=== PATIENT | female | born 1975 | race Caucasian/White ===

== ENCOUNTER 2017-10-19 20:05 | Emergency (ER) | payer OTHER ==
[~2017-10-19] VITALS: Ht 154.9 cm; Wt 49.4 kg
[~2017-10-19 20:05] MED LIST: ALBU.5I INH; DUONI NEB; GUAISOL PO; TUSSSUS PO
[2017-10-19 20:30] VITALS: BP 130/76; PULSE 70; RESP 16; TEMP 98.5; O2SAT 98
[2017-10-19] MEDS ORDERED: methylPREDNISolone SOD SUCC 125 MG/2 ML VIAL IV PUSH ONE (21:00)
[2017-10-19] MEDS ORDERED: SODIUM CHLORIDE 0.9% FLUSH 10 ML FLUSH IVF PRN (21:00)
[2017-10-19] MEDS: RESP: ALBUTEROL 2.5 MG/IPRATROPIUM 0.5 MG NEB (SCH) INH ×2 (21:03→21:04)
--- NOTE | 2017-10-19 21:32 | PD ---
HPI . Persistent cough Chief Complaint: Respiratory Symptoms Time Seen by Provider: 20:48 Travel History International Travel<30 days: No Contact w/Intl Traveler<30days: No Traveled to known affect area: No History of Present Illness HPI This patient presents with chief complaint of persistent cough. Onset was a week ago. She states that she did have purulent sputum production but that the sputum has resolved. She has a history of asthma. She saw her PMD yesterday who gave her a steroid injection. She has been using her albuterol MDI. She states that her doctor told her that she needed to be seen in the emergency department if she was not better in 24 hours. The symptoms have persisted so she comes to us tonight. She is unaware of any modifying factors. Her symptoms are moderate. PFSH Past Medical History Asthma: Yes Diabetes: No Diminished Hearing: No : 3 Para: 2 : 1 Past Surgical History Other Surgery: Yes (NOSE BROKEN FOUR TIMES SURGERY X2) Social History Alcohol Use: No Tobacco Use: No Substance Use: No Allergies-Medications (Allergen,Severity, Reaction): Coded Allergies: cortisone (Unverified Allergy, Intermediate, RASH, 10/19/17) red dye (Unverified Allergy, Intermediate, RASH, 10/19/17) diatrizoate meglumine (Unverified Adverse Reaction, Intermediate, HIVES, ) gadobenic acid (Unverified Adverse Reaction, Intermediate, HIVES, 10/19/17) gadodiamide (Unverified Adverse Reaction, Intermediate, HIVES, 10/19/17) gadoteridol (Unverified Adverse Reaction, Intermediate, HIVES, 10/19/17) iodixanol (Unverified Adverse Reaction, Intermediate, HIVES, 10/19/17) iohexol (Unverified Adverse Reaction, Intermediate, HIVES, 10/19/17) Reported Meds & Prescriptions Reported Meds & Active Scripts Active Robitussin Dac (Codeine/Guaifenesin/Pseudoeph) Liqd 10 Ml PO Q6H Resp: Albuterol/Ipratropium 2.5 Mg/0.5 Mg (Albuterol/Ipratropium) 1 Amp Nebu 1 Amp NEB Q6H Reported Tussionex (Chlorphenir/Hydrocodone Polistirex) Liqcr 5 Ml PO BID PRN Proventil Conc Ud 0.5% (2.5 Mg/0.5 Ml) (Albuterol Sulfate) 2.5 Mg/0.5 Ml Inha 2.5 Mg INH Q6H PRN Review of Systems Except as stated in HPI: all other systems reviewed are Neg General / Constitutional: No: Fever, Chills Respiratory: Positive: Cough, Shortness of Breath Physical Exam Narrative GENERAL: Awake and alert and in no acute distress. Very persistent cough. SKIN: Warm and dry. HEAD: Normocephalic/atraumatic. EYES: Pupils are equal. Extraocular movements are intact. NECK: Normal range of motion. CARDIOVASCULAR: Regular rate and rhythm. Heart sounds are normal. RESPIRATORY: Breath sounds are full and equal. She coughs every time she takes a deep breath. There is some end expiratory wheezing heard with coughing. MUSCULOSKELETAL: Atraumatic. NEUROLOGICAL: Nonfocal. PSYCHIATRIC: Appropriate mood and affect. Data Data Last Documented VS Vital Signs Date Time Temp Pulse Resp B/P (MAP) Pulse Ox O2 Delivery O2 Flow Rate FiO2 10/19/17 20:30 98.5 70 16 130/76 (94) 98 Orders Orders Chest, Pa & Lat (10/19/17 20:52) Iv Access Insert/Monitor (10/19/17 20:52) Oxygen Administration (10/19/17 20:52) Methylprednisolone So Succ Inj (Solumedr (10/19/17 21:00) Albuterol-Ipratropium Neb (Duoneb Neb) (10/19/17 21:00) Sodium Chloride 0.9% Flush (Ns Flush) (10/19/17 21:00) MDM Medical Decision Making Medical Screen Exam Complete: Yes Emergency Medical Condition: Yes Differential Diagnosis Differential diagnosis includes but is not limited to viral respiratory illness , bronchitis, pneumonia, allergies, CHF, asthma/COPD. Narrative Course This patient presents with a persistent cough. She has a history of asthma. She will be treated with stacked nebs and IV Solu-Medrol. Chest x-ray is pending. Last Impressions Chest X-Ray 10/19/172051 Signed Impressions: CONCLUSION: 1. No acute cardiopulmonary disease. The chest x-ray was independently reviewed by me. The constant coughing has stopped. She will be discharged home with a prescription for DuoNeb solution. She has access to her daughter's nebulizer machine that she can use. I will also discharge her prescription for oral steroids. Diagnosis Primary Impression: Bronchospasm Patient Instructions: Asthma (DC), General Instructions Med/Other Pt SpecificInfo: Prescription(s) given Scripts Prednisone (Prednisone) 50 Mg Tab 50 MG PO DAILY for 5 Days, #5 TAB 0 Refills Prov: Maribel Barker MD 10/19/17 Albuterol 18 GM Inh (Ventolin Hfa 18 GM Inh) 90 Mcg/Act Aer 2 PUFF INH Q4-6H Y for SHORTNESS OF BREATH, #1 INHALER 0 Refills Prov: Maribel Barker MD 10/19/17 Ipratropium-Albuterol Neb (Duoneb) 0.5-2.5 Mg/3 Ml Neb 1 NEBULE INH Q4HR NEB for SHORTNESS OF BREATH, #120 NEBULE 0 Refills Prov: Maribel Barker MD 10/19/17 Disposition: 01 DISCHARGE HOME Condition: Stable Maribel Barker MD October 19, 2017 21:32
--- NOTE | 2017-10-19 21:45 | RADRPT ---
EXAM DATE: 10/19/2017 9:42 PM EDT AGE/SEX: 42 years / Female INDICATIONS: Cough for 10 days CLINICAL DATA: This is the patient's initial encounter. Patient reports that signs and symptoms have been present for 1 week and indicates a pain score of 0/10. MEDICAL/SURGICAL HISTORY: None. None. COMPARISON: No prior [facility] exams available for comparison. FINDINGS: PA and lateral views of the chest demonstrate the lungs to be symmetrically aerated without evidence of mass, infiltrate or effusion. The cardiomediastinal contours are unremarkable. Osseous structures are intact. CONCLUSION: 1. No acute cardiopulmonary disease. Electronically signed by: Ortiz Oviedo MD 10/19/2017 9:44 PM EDT
[2017-10-19] MEDS ORDERED: PRED50 PO (21:55)
[2017-10-19] MEDS ORDERED: VENTAER INH (21:55)
[2017-10-19] MEDS ORDERED: IPRASOL INH (21:55)
[2017-10-19 22:16] VITALS: BP 138/85; TEMP 98.3
== END 2017-10-19 22:17 | disposition home or self-care (01) ==
LOC: PHED 20:05
DX: J98.01 Acute bronchospasm (principal); J45.909 Unspecified asthma, uncomplicated; Z79.899 Other long term (current) drug therapy; Z88.8 Allergy status to other drugs, medicaments and biological substances
CPT/HCPCS: 71046; 94640; 94664; 96374; 99283; J2930